=== PATIENT | male | born 1970 | race Caucasian/White ===

== ENCOUNTER → 2016-09-28 | Outpatient (CLI) | payer BC ==
--- NOTE | 2016-09-28 16:13 | DIAGNOSTIC IMAGING REPORT ---
CSF flow study MRI CERVICAL FLEX/EXT CSF CLINICAL HISTORY: CHIARI Malformation, flex/ext W/FLOW TECHNIQUE: MRI CSF flow study. Images acquired in flexion and extension as well as neutral positions COMPARISON STUDY: None FINDINGS: Normal signal characteristics of the vertebral bodies. Minimal degenerative disc desiccation throughout. Signal characteristics of the cervical cord appear unremarkable. Low-lying cerebellar tonsils. Normal CSF flow characteristics on a positional basis. IMPRESSION: 1. 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 2. Normal CSF flow characteristics , with images acquired on a positional basis. 3. No evidence of disc herniation or spinal stenosis. Electronically signed by: Bridger Kwok M.D. 09/28/2016 4:11 PM Dictated Date/Time: 09/28/2016 4:09 PM
== END | disposition home or self-care (01) ==
LOC: C.MRIBC 13:49
PROVIDERS: ATTEND Neurological Surgery
DX: G93.5 Compression of brain (principal)